=== PATIENT | female | born 1940 | race Two or more races ===

== ENCOUNTER 2019-01-10 09:16 | Emergency (ER) | payer BC, MEDICARE ==
--- NOTE | 2019-01-10 09:46 | ED ---
Upper Extremity Pain - HPI Summary HPI Summary: Pt. is an 78 y.o female who presents to the ER for left wrist and right thumb injury that occurred last night. Pt. is visiting her daughter in the area and lives in [place]. Pt. states she bent over last night and lost her balance and fell forward. Pt. states she put out her hands to protect her glasses. Pt. did strike right side of face but denies LOC. Pt. denies headache, syncope, dizziness, CP, SOB, abd. pain, V/D. Sxs are mild in severity. Moving makes sxs worse. Rest makes sxs better. Is not anticoagulated. - History of Current Complaint Chief Complaint: EDFall Stated Complaint: FALL RIGHT WRSIT AND RIGHT THUMB INJURY Time Seen by Provider: 01/10/19 09:27 Hx Obtained From: Patient, Family/Director Market Intelligence - Allergies/Home Medications Allergies/Adverse Reactions: Allergies Allergy/AdvReac Type Severity Reaction Status Date / Time codeine Allergy Rash Verified 01/10/19 09:38 meperidine [From Demerol] Allergy Rash Verified 01/10/19 09:38 Home Medications: Home Medications Atorvastatin* [Lipitor*] 10 mg PO DAILY 01/10/19 [History Confirmed 01/10/19] Escitalopram * [Lexapro 10 mg (NF)] 10 mg PO DAILY 01/10/19 [History Confirmed 01/10/19] Irbesartan/Hydrochlorothiazide [Irbesartan-Hctz 150-12.5 mg Tb] 1 tab PO DAILY 01/10/19 [History Confirmed 01/10/19] Levothyroxine TAB* [Synthroid TAB*] 88 mcg PO DAILY 01/10/19 [History Confirmed 01/10/19] Metoprolol Tartrate TAB* [Lopressor TAB*] 50 mg PO BID 01/10/19 [History Confirmed 01/10/19] PMH/Surg Hx/FS Hx/Imm Hx Previously Healthy: Yes Infectious Disease History: No Infectious Disease History: Denies: Traveled Outside the [place] in Last 30 Days - Social History Occupation: Retired Lives: With Family Alcohol Use: Occasionally Substance Use Type: Reports: None Smoking Status (MU): Never Smoked Tobacco Review of Systems Cardiovascular: Negative Negative: Palpitations, Chest Pain Respiratory: Negative Negative: Shortness Of Breath Positive: Other - right wrist and left thumb pain Positive: Bruising Neurological: Negative Negative: Headache, Weakness, Paresthesia, Numbness, Syncope All Other Systems Reviewed And Are Negative: Yes Physical Exam Triage Information Reviewed: Yes Vital Signs On Initial Exam: Initial Vitals Temp Pulse Resp BP Pulse Ox 97.3 F 68 16 176/89 94 01/10/19 09:20 01/10/19 09:20 01/10/19 09:20 01/10/19 09:20 01/10/19 09:20 Vital Signs Reviewed: Yes Appearance: Positive: Well-Appearing - Pt. sitting up in bed in NAD. Mother present. Skin: Positive: Warm, Dry Head/Face: Positive: Normal Head/Face Inspection Eyes: Positive: Normal, EOMI, JARED Neck: Positive: Supple Musculoskeletal: Positive: Other - Moderate edema to right distal forearm. No breaks in the skin. No sensory deficits. Full ROM of digits. Left thumb is ecchymotic and edematous. No breaks in the skin. Full ROM with pain. Neurological: Positive: Normal, CN Intact II-III Psychiatric: Positive: Affect/Mood Appropriate Procedures - Splinting Right Upper Extremity Hand-Made Type: orthoglass Splint: sugar-tong Pre-Proc Neuro Vasc Exam: normal Post-Proc Neuro Vasc Exam: normal Left Thumb Hand-Made Type: orthoglass Splint: thumb spica Pre-Proc Neuro Vasc Exam: normal Post-Proc Neuro Vasc Exam: normal Diagnostics - Vital Signs Vital Signs Temp Pulse Resp BP Pulse Ox 01/10/19 09:20 97.3 F 68 16 176/89 94 - Laboratory Lab Statement: Any lab studies that have been ordered have been reviewed, and results considered in the medical decision making process. Course/Dx - Course Course Of Treatment: Patient presenting with right wrist and left thumb injury after a mechanical fall last night. Patient declined pain medication the ER. Xrays per radiology: IMPRESSION: 1. ANGULATED FRACTURE OF THE DISTAL RADIAL METAPHYSIS WITH SLIGHTLY DISPLACED FRACTURE OF. THE STYLOID PROCESS OF THE ULNA. 2. NONDISPLACED FRACTURE OF THE PROXIMAL PHALANX OF THE FIRST DIGIT. Sugar tong and thumb spica placed. Pt. will be staying with her daughter for a while now. Daughter states she has had ultram in the past and did okay with. Will rx a few days. To call the ortho clinic today for close f.u. To ice and elevate. Keep splints in place. To return to ER if sxs change or worsen. Pt. and daughter understand and agree with plan. - Diagnoses Differential Diagnosis/HQI/PQRI: Positive: Contusion, Fracture (Closed), Strain , Sprain Provider Diagnoses: Thumb fracture, Forearm fracture Discharge - Sign-Out/Discharge Documenting (check all that apply): Patient Departure Patient Received Moderate/Deep Sedation with Procedure: No - Discharge Plan Condition: Good Disposition: HOME Prescriptions: Tramadol HCl [Ultram] 50 mg PO Q6H #12 tablet MDD 4 Patient Education Materials: Arm Fracture in Adults (ED), Thumb Fracture (ED) Referrals: Radha Turner MD [Medical Doctor] - Additional Instructions: Call Dr. Turner's office today to schedule a close follow up appointment Keep splints in place Ice and elevate intermittently Ultram as directed Return to ER if symptoms change or worsen - Billing Disposition and Condition Condition: GOOD Disposition: Home
[2019-01-10 11:23] VITALS: BP 0/0
== END 2019-01-10 11:22 | disposition home or self-care (01) ==
LOC: ED 09:16
DX: S52.501A Unspecified fracture of the lower end of right radius, initial encounter for closed fracture (principal); S52.611A Displaced fracture of right ulna styloid process, initial encounter for closed fracture; S62.515A Nondisplaced fracture of proximal phalanx of left thumb, initial encounter for closed fracture; W18.30XA Fall on same level, unspecified, initial encounter; Y92.9 Unspecified place or not applicable; Z88.5 Allergy status to narcotic agent
CPT/HCPCS: 99282

== ENCOUNTER → 2019-01-20 11:36 | Day surgery (SDC) | payer MEDICARE ==
[~2019-01-20 11:36] MED LIST: Buffered Lidocaine 1% SYRIN* 1 ML/SYRINGE INTRADERM ONE; Bupivacaine 0.25% SDV PF* 10 ML VIAL INJ ONE; Dexamethasone IV* 4 MG/ML 1 ML (4 MG) ONE; Labetalol IV* 5 MG/ML 20 ML VIAL IV ONE; Lactated Ringers 1000 ML Bag* 1,000 ML IV SCH; Lidocaine 2% PF * 5 ML VIAL ONE; Naloxone* 0.4 MG/ML 1 ML VIAL IV PRN; Propofol* 10 MG/ML 20 ML BTL ONE; Scopolamine 1.5 mg* PATCH ONE; Scopolamine 1.5 mg* PATCH TRANSDERM ONE; Sodium Citrate/Citric Acid* 15 ML UDC ONE; Sodium Citrate/Citric Acid* 15 ML UDC PO ONE; fentaNYL* 50 MCG/ML 2 ML VIAL (100 MCG VIAL) ONE; traMADol TAB* 50 MG ONE
[2019-01-20] MEDS: fentaNYL* 50 MCG/ML 2 ML VIAL (100 MCG VIAL) IV PRN ×4 (17:54→18:21)
[2019-01-20 19:21] VITALS: BP 157/71
--- NOTE | 2019-01-21 00:28 | OP ---
DATE OF OPERATION: 01/20/19 - [facility] DATE OF : 36 SURGEON: Cliff Carroll MD PAPETERIE TABLE ASSEMBLER: CORNELIO Julio ANESTHESIOLOGIST: Dr. Cummins. ANESTHESIA: General. PRE-OP DIAGNOSIS: Right distal radius intraarticular displaced fracture. POST-OP DIAGNOSIS: Right distal radius intraarticular displaced fracture. OPERATIVE PROCEDURE: Right wrist distal radius closed reduction and percutaneous fixation of the displaced fracture. INDICATIONS: Yamel is 78. She has a distal radius fracture. We talked about the option and doing ORIF versus pinning versus closed reduction and casting. She had wanted to not do ORIF, she wanted to do reduction and pinning. I told her that was very reasonable. We talked about risks and benefits including risk of pin tract infection and she wanted to proceed. ESTIMATE BLOOD LOSS: 2 mL. COMPLICATIONS: None. FINDINGS: See above and below. DESCRIPTION OF PROCEDURE: Yamel was seen in the preoperative holding area. The correct site and side of the procedure were identified. We came back to the operating room. The arm was prepped and draped in the usual fashion and time-out was performed. I went ahead and placed Kerlix finger traps on the index and middle fingers. We used an to hang the arm and 5 pounds of inline traction was applied. A closed reduction maneuver was then performed. A mini C-arm fluoroscopy was brought in and confirmed the reduction on the AP and lateral views. I then took a couple of larger diameter K wires and the first wire went from the radial styloid exiting out volar and ulnar. The second wire started dorsally and went through the articular surface and exited out volarly and the last wire again started just a little more dorsal on the radial styloid and exited out ulnarly. At this point, the pins all looked good. I let off the traction. The reduction held very nicely. I went ahead and bent and clipped the pins. The pins were dressed with Xeroform, 4x4's, sterile Webril, and then short-arm sling was applied to both volar and dorsal slabs and a nice was applied. She was taken to the recovery room in stable condition. [id number]/[facility] #: [id number] [facility] MEDICAL CENTERShayy
== END | disposition home or self-care (01) ==
LOC: OR 11:36
PROVIDERS: ATTEND Orthopaedic Surgery Hand Surgery
DX: S52.501A Unspecified fracture of the lower end of right radius, initial encounter for closed fracture (principal); S62.515A Nondisplaced fracture of proximal phalanx of left thumb, initial encounter for closed fracture; I10 Essential (primary) hypertension; E78.00 Pure hypercholesterolemia, unspecified; E03.9 Hypothyroidism, unspecified; Z88.5 Allergy status to narcotic agent; Z88.8 Allergy status to other drugs, medicaments and biological substances; W01.0XXA Fall on same level from slipping, tripping and stumbling without subsequent striking against object, initial encounter; Y93.01 Activity, walking, marching and hiking; Y92.89 Other specified places as the place of occurrence of the external cause
CPT/HCPCS: 76000; A9270-GY; C1776; J1100; J2704; J3010; J3490